=== PATIENT | male | born 1995 | race Caucasian/White ===

== ENCOUNTER 2020-11-06 23:29 | Emergency (ER) | payer BC ==
[~2020-11-06] VITALS: Ht 180.3 cm; Wt 65.8 kg
== END 2020-11-07 00:21 | disposition home or self-care (01) ==
LOC: ER 23:29
DX: S20.211A Contusion of right front wall of thorax, initial encounter (principal); W22.8XXA Striking against or struck by other objects, initial encounter
CPT/HCPCS: 71046; 99283-25

== ENCOUNTER 2021-09-23 11:31 | Emergency (ER) | payer OTHER ==
[~2021-09-23] VITALS: Ht 180.3 cm; Wt 72.6 kg
== END 2021-09-23 13:03 | disposition home or self-care (01) ==
LOC: ER 11:31
DX: S63.501A Unspecified sprain of right wrist, initial encounter (principal); V00.131A Fall from skateboard, initial encounter; F17.210 Nicotine dependence, cigarettes, uncomplicated
CPT/HCPCS: 73110

== ENCOUNTER 2023-09-07 18:40 | Emergency (ER) | payer SELFPAY ==
[~2023-09-07] VITALS: Ht 182.9 cm; Wt 68.0 kg
[2023-09-07 19:06] VITALS: BP 118/87
[2023-09-07] MEDS ORDERED: Ondansetron HCl 2 MG / ML 2ML Vial IV ONE (19:10)
[2023-09-07] MEDS ORDERED: Lactated Ringer's 1,000 ML IV ONE (19:10)
== END 2023-09-07 20:26 | disposition home or self-care (01) ==
LOC: ER 18:40
DX: T67.5XXA Heat exhaustion, unspecified, initial encounter (principal); X30.XXXA Exposure to excessive natural heat, initial encounter
CPT/HCPCS: 96361; 96374; 99283-25; J2405; J7120